=== PATIENT | female | born 2000 | race Caucasian/White ===

== ENCOUNTER 2021-11-22 18:36 | Emergency (ER) | payer BC ==
[~2021-11-22] VITALS: Ht 157.5 cm; Wt 77.1 kg
[2021-11-22 20:39] VITALS: BP 139/77
== END 2021-11-22 20:39 | disposition home or self-care (01) ==
LOC: M.ERS 18:36
DX: S82.831A Other fracture of upper and lower end of right fibula, initial encounter for closed fracture (principal); W05.1XXA Fall from non-moving nonmotorized scooter, initial encounter; Y93.I9 Activity, other involving external motion; Y92.410 Unspecified street and highway as the place of occurrence of the external cause; Y99.8 Other external cause status